=== PATIENT | female | born 1955 | race Caucasian/White ===

== ENCOUNTER 2019-10-17 12:14 | Outpatient (CLI) | payer BC, SELFPAY ==
--- NOTE | ~2019-10-17 | MM_ITS ---
EXAMINATION: MM screening [facility] BI w petar HISTORY: Screening mammogram TECHNIQUE: Craniocaudal and mediolateral oblique 3-D tomosynthesis images were obtained and synthetic 2-D images were generated. CAD analysis was submitted and interpreted. COMPARISON: Comparison to multiple prior studies sequentially, with oldest reviewed study dated 02/16. BREAST PARENCHYMAL COMPOSITION: There are scattered areas of fibroglandular density. FINDINGS: There is no evidence of suspicious mass, calcification, or architectural distortion to sugg est malignancy in either breast. There has been no suspicious interval change. IMPRESSION: 1. No mammographic evidence of malignancy. 2. Recommend routine screening mammography in one year. BI-RADS Category 1: Negative Reviewed, dictated and finalized at location D.
[2019-10-17 12:46] LABS: Add Urine Microscopic? NO; Appearance Urine Clear (Clear); Basophils Absolute Auto 0.02 K/mm3 (0.00-0.10); Basophils Percent Auto 0.4 % (0.0-1.0); Bilirubin Urine Negative (Negative); Blood Urine Negative (Negative); Color Urine Yellow (Yellow); Eosinophils Percent Auto 3.6 % (1.0-6.0); Glucose Urine UA Negative (Negative); Hematocrit 41.2 % (35.0-49.0); Hemoglobin 13.3 g/dL (12.0-15.0); Immature Granulocyte Absolute 0.02 K/mm3 (0.00-0.00); Immature Granulocyte Percent A 0.4 % (0.0-0.0); Ketones Urine Negative (Negative); Leukocyte Esterase Ur Negative LEU/UL (Negative); Lymphocytes Absolute Auto 2.25 K/mm3 (1.10-4.50); Lymphocytes Percent Auto 40.3 % (18.0-42.0); Mean Corpuscular HGB Conc 32.3 g/dL (32.0-36.0); Mean Corpuscular Hemoglobin 31.1 pg (27.0-31.0); Mean Corpuscular Volume 96.3 fL (78.0-102.0); Mean Platelet Volume 10.4 fl (9.2-11.8); Monocytes Absolute Auto 0.55 K/mm3 (0.10-0.90); Monocytes Percent Auto 9.8 % (2.0-11.0); Neutrophils Absolute Auto 2.6 K/mm3 (1.7-7.2); Neutrophils Percent Auto 45.5 % (50.0-70.0); Nitrate Urine Negative (Negative); Platelet Count Result 319 K/mm3 (150-420); Protein Urine Negative (Negative); Red Blood Count 4.28 M/mm3 (4.20-5.40); Red Cell Distribution Width 13.5 % (11.6-14.4); Urobilinogen Urine 0.2 mg/dL (0.2-1.0); White Blood Count 5.6 K/mm3 (4.8-10.8)
[2019-10-17 13:55] LABS: Alanine Aminotransferase 21 U/L (14-59); Albumin Level 3.9 g/dL (3.4-5.0); Alkaline Phosphatase 88 U/L (46-116); Anion Gap 13.1 mmol/L (7-16); Aspartate Amino Transferase 22 U/L (15-37); Bilirubin,Total 0.5 mg/dL (0.00-1.00); Blood Urea Nitrogen 18 mg/dL (7-18); Calcium 9.7 mg/dL (8.5-10.1); Carbon Dioxide 29 mmol/L (21-32); Chloride 103 mmol/L (98-108); Cholesterol 181 mg/dL (0-200); Estimated Glomerular Filt Rate > 60; Free T4 Free Thyroxine 1.39 ng/dL (0.76-1.46); Glucose 89 mg/dL (70-99); HDL Direct 59 mg/dL (40-60); LDL Cholesterol Calculated 105 mg/dL (<130); Osmolality Calculated 292 mOsm/kg (285-295); Potassium 4.1 mmol/L (3.5-5.1); Sodium 141 mmol/L (136-145); Thyroid Stimulating Hormone 0.39 uIU/mL (0.36-3.74); Total Protein 7.4 g/dL (6.4-8.2); Triglycerides 84 mg/dL (0-150)
[2019-10-20 11:15] LABS: Vitamin D 25 Hydroxy 56 ng/mL (30-100)
== END 2019-10-17 12:15 | disposition home or self-care (01) ==
LOC: CHSIMG 12:17
PROVIDERS: PCP Internal Medicine; Visit Provider Internal Medicine
DX: Z12.31 Encounter for screening mammogram for malignant neoplasm of breast (principal); Z00.00 Encounter for general adult medical examination without abnormal findings; M81.0 Age-related osteoporosis without current pathological fracture
CPT/HCPCS: 36415; 77063; 77067; 80053; 80061; 81003; 82306; 84439; 84443; 85025

== ENCOUNTER 2019-11-12 12:57 | Outpatient (CLI) | payer BC, SELFPAY ==
--- NOTE | ~2019-11-12 | DEXA_ITS ---
BMD(1) Young-Adult(2) Age-Matched(3) Region (g/cm2) T-score Z-score WHO Classification L1 0.963 -1.4 0.3 Osteopenia L2 1.011 -1.6 0.1 Osteopenia L3 1.085 -1.1 0.7 Osteopenia L4 1.392 1.4 3.1 Normal L2-L3 1.050 -1.3 0.4 Osteopenia Trend: L2-L3 Change vs Change vs Measured Age BMD(1) Baseline Previous Date (years) (g/cm2) (%) (%) 11/12/2019 64.7 1.050 -13.4* -4.5 06/24/2017 62.4 1.099 -9.3* -3.6 07[age]05/2014 59.4 1.140 -5.9* -5.9* 11/18/2006 51.8 1.212 baseline - * - Indicates significant change based on 95% confidence interval. 1 - Statistically 68% of repeat scans fall within 1SD (+- 0.020 g/cm2 for AP Spine L2-L3) 2 - [place] (Combined NHANES (ages 20-30) / Quividi (ages 20-40)) AP Spine Reference Population (v112) 3 - Matched for Age, Weight (females 25-100 kg), Ethnic 11 - World Health Organization - Definition of Osteoporosis and Osteopenia for Women: Norm al = T-score at or above -1.0 SD; Osteopenia = T-score between -1.0 and -2.5 SD; Osteoporosis = T-sco re at or below -2.5 SD; (WHO definitions only apply when a young healthy Women reference da tabase is used to determine T-scores.) Printed: 11/12/2019 1:25:27 PM (13.60)76:3.00:50.00:12.0 0.00:8.34 0.60x1.05 19.6:%Fat=25.6% 0.00:0.00 0.00:0.00 Filename: [id number] Scan Mode: Standard;OneScan 37.0 uGCare at Hand [id number] BMD(1) Young-Adult(2,7) Age-Matched(3) Region (g/cm2) T-score Z-score WHO Classification Neck Left 0.874 -1.2 0.4 Osteopenia Right 0.842 -1.4 0.1 Osteopenia Mean 0.858 -1.3 0.3 Osteopenia Difference 0.032 -0.2 -0.2 - Total Left 0.910 -0.8 0.5 Normal Right 0.910 -0.8 0.5 Normal Mean 0.910 -0.8 0.5 Normal Difference 0.000 0.0 0.0 - Hip [place] Length Comparison (mm) (Right = 116.4 mm) (Mean = 106.3 mm) Trend: Total Mean Change vs Change vs Measured Age BMD(1) Baseline Previous Date (years) (g/cm2) (%) (%) 11/12/2019 64.7 0.910 -10.1* -3.0* 07/05/2014 59.4 0.938 -7.3* -7.3* 11/18/2006 51.8 1.012 baseline - * - Indicates significant change based on 95% confidence interval. 1 - Statistically 68% of repeat scans fall within 1SD (+- 0.010 g/cm2 for DualFemur Total) 2 - [place] (Combined NHANES (ages 20-30) / [employer] (ages 20-40)) Femur Reference Population (v112) 3 - Matched for Age, Weight (females 25-100 kg), Ethnic 7 - DualFemur Total T-score difference is 0.0. Asymmetry is None. 11 - World Health Organization - Definition of Osteoporosis and Osteopenia for Women: Norm al = T-score at or above -1.0 SD; Osteopenia = T-score between -1.0 and -2.5 SD; Osteoporosis = T-sco re at or below -2.5 SD; (WHO definitions only apply when a young healthy Women reference da tabase is used to determine T-scores.) Printed: 11/12/2019 1:25:27 PM (13.60); Filename: [id number]; Right Femur; 17.4:%Fat=24.0%; Neck A ngle (deg)= 64; Verify there is sufficient pelvis-shaft separation.; Scan Mode: Standard 37.0 uGy; Left Femur; 15.9:%Fat=30.3%; Neck Angle (deg)= 65; Scan Mode: Standard 37.0 viblast [id number] Dear Wild Vargas, Your patient Griselda Barron completed a BMD test on 11/12/2019 using the [employer] DXA System (an alysis version: 13.60) manufactured by [employer]. The f
== END 2019-11-12 12:58 | disposition home or self-care (01) ==
LOC: CHSIMG 12:58
PROVIDERS: PCP Internal Medicine; Visit Provider Internal Medicine
DX: M81.0 Age-related osteoporosis without current pathological fracture (principal)
CPT/HCPCS: 77080

== ENCOUNTER 2020-03-31 11:44 | Outpatient (CLI) | payer MEDICARE, BC, SELFPAY | END 2020-03-31 11:45 | disposition home or self-care (01) | LOC: CHSLAB 11:48 | PROVIDERS: PCP Internal Medicine; Visit Provider Nurse Practitioner Family | DX: Z01.419 Encounter for gynecological examination (general) (routine) without abnormal findings (principal) | CPT/HCPCS: 36415; 87624; 88142 ==

== ENCOUNTER 2020-11-12 09:30 | Outpatient (CLI) | payer MEDICARE, BC, SELFPAY ==
--- NOTE | ~2020-11-12 | MM_ITS ---
EXAMINATION: MM screening trip BI w petar HISTORY: Screening mammogram TECHNIQUE: Craniocaudal and mediolateral oblique 3-D tomosynthesis images were obtained and synthetic 2-D images were generated. CAD analysis was submitted and interpreted. COMPARISON: 10/17/2019, 07/06/2018, 03/28/2017 bilateral digital screening mammogram examinations BREAST PARENCHYMAL COMPOSITION: There are scattered areas of fibroglandular density. FINDINGS: There is no evidence of suspicious mass, calcification, or architectural distortion to sugg est malignancy in either breast. There has been no suspicious interval change. IMPRESSION: 1. No mammographic evidence of malignancy. 2. Recommend routine screening mammography in one year. BI-RADS Category 1: Negative Reviewed, dictated and finalized at location A.
[2020-11-12 10:44] LABS: Basophils Absolute Auto 0.02 K/mm3 (0.00-0.10); Basophils Percent Auto 0.5 % (0.0-1.0); Eosinophils Absolute Auto 0.22 K/mm3 (0.02-0.50); Eosinophils Percent Auto 5.1 % (1.0-6.0); Hematocrit 44.4 % (35.0-42.0); Hemoglobin 14.2 g/dL (11.7-13.8); Immature Granulocyte Absolute 0.02 K/mm3 (0.00-0.00); Immature Granulocyte Percent A 0.5 % (0.0-0.0); Lymphocytes Absolute Auto 1.57 K/mm3 (1.10-4.50); Lymphocytes Percent Auto 36.6 % (18.0-42.0); Mean Corpuscular Hemoglobin 30.2 pg (27.0-31.0); Mean Corpuscular Volume 94.5 fL (78.0-102.0); Mean Platelet Volume 10.2 fl (9.2-11.8); Monocytes Absolute Auto 0.48 K/mm3 (0.10-0.90); Monocytes Percent Auto 11.2 % (2.0-11.0); Neutrophils Percent Auto 46.1 % (50.0-70.0); Platelet Count Result 304 K/mm3 (150-420); Red Cell Distribution Width 13.9 % (11.6-14.4); White Blood Count 4.3 K/mm3 (4.8-10.8)
[2020-11-12 10:47] LABS: Add Urine Microscopic? NO; Appearance Urine Clear (Clear); Bilirubin Urine Negative (Negative); Blood Urine Negative (Negative); Color Urine Light Yellow (Yellow); Glucose Urine UA Negative (Negative); Ketones Urine Negative (Negative); Leukocyte Esterase Ur Negative LEU/UL (Negative); Nitrate Urine Negative (Negative); Protein Urine Negative (Negative); Specific Grav Ur 1.025 (1.010-1.020); Urobilinogen Urine 0.2 mg/dL (0.2-1.0); pH Urine 5.5 (5.0-8.0)
[2020-11-12 11:28] LABS: Alanine Aminotransferase 28 U/L (14-59); Albumin Level 4.1 g/dL (3.4-5.0); Alkaline Phosphatase 94 U/L (46-116); Anion Gap 9 mmol/L (8-16); Aspartate Amino Transferase 22 U/L (15-37); Bilirubin,Total 0.4 mg/dL (0.00-1.00); Blood Urea Nitrogen 25 mg/dL (7-18); Calcium 9.6 mg/dL (8.5-10.1); Carbon Dioxide 29 mmol/L (21-32); Chloride 104 mmol/L (98-108); Cholesterol 191 mg/dL (0-200); Estimated Glomerular Filt Rate > 60; Free T3 2.01 pg/mL (2.18-3.98); Free T4 Free Thyroxine 0.97 ng/dL (0.76-1.46); Glucose 89 mg/dL (70-99); HDL Direct 53 mg/dL (40-60); LDL Cholesterol Calculated 125 mg/dL (<130); Osmolality Calculated 297 mOsm/kg (285-295); Potassium 4.8 mmol/L (3.5-5.1); Sodium 142 mmol/L (136-145); Thyroid Stimulating Hormone 0.22 uIU/mL (0.36-3.74); Total Protein 7.7 g/dL (6.4-8.2); Triglycerides 67 mg/dL (0-150)
[2020-11-14 13:32] LABS: Vitamin D 25 Hydroxy 57 ng/mL (30-100)
== END 2020-11-12 09:31 | disposition home or self-care (01) ==
PROVIDERS: PCP Internal Medicine; Visit Provider Internal Medicine
DX: E03.9 Hypothyroidism, unspecified (principal); M81.0 Age-related osteoporosis without current pathological fracture; Z12.31 Encounter for screening mammogram for malignant neoplasm of breast
CPT/HCPCS: 36415; 77063; 77067; 80053; 80061; 81003; 82306; 84439; 84443; 84481; 85025

== ENCOUNTER 2020-12-03 11:19 | Outpatient (CLI) | payer MEDICARE, BC, SELFPAY ==
--- NOTE | ~2020-12-03 | CT_ITS ---
EXAMINATION: CT soft tissue neck w con DATE: 12/03/2020 12:49 INDICATION: Posterior neck mass. TECHNIQUE: Computed tomography (CT) of the neck was performed with 75 mL Omnipaque-350 intravenous co ntrast. Automated exposure control and iterative reconstruction technique were employed. The dose-nicola gth product was 314.65 mGy-cm. COMPARISON: None FINDINGS: There is mild scarring at the lung apices. There is a subcutaneous lipoma in left posterior neck measuring 3.6 x 1.2 x 3.4 cm. A skin marker overlies this area. There are no pathologically enl arged lymph nodes. There is mild plaque in proximal left internal carotid artery with 0% stenosis rel ative to normal distal artery lumen diameter. There is mild cervical spondylosis. IMPRESSION: 1. 3.6 cm subcutaneous lipoma in left posterior neck. Reviewed, dictated and finalized at location B.
[2020-12-03 11:58] LABS: Estimated Glomerular Filt Rate > 60
== END 2020-12-03 11:20 | disposition home or self-care (01) ==
LOC: CHSIMG 11:25
PROVIDERS: PCP Internal Medicine; Visit Provider Internal Medicine
DX: R22.1 Localized swelling, mass and lump, neck (principal)
CPT/HCPCS: 70491; Q9967

== ENCOUNTER 2021-11-19 12:19 | Outpatient (CLI) | payer MEDICARE, BC, SELFPAY ==
--- NOTE | ~2021-11-19 | MM_ITS ---
EXAMINATION: MM screening [facility] BI w petar HISTORY: Screening TECHNIQUE: Craniocaudal and mediolateral oblique 3-D tomosynthesis images were obtained and synthetic 2-D images were generated. CAD analysis was submitted and interpreted. COMPARISON: Comparison to multiple prior studies sequentially, with oldest reviewed study dated 02/17. BREAST PARENCHYMAL COMPOSITION: There are scattered areas of fibroglandular density. FINDINGS: There is no evidence of suspicious mass, calcification, or architectural distortion to sugg est malignancy in either breast. There has been no suspicious interval change. IMPRESSION: 1. No mammographic evidence of malignancy. 2. Recommend routine screening mammography in one year. BI-RADS Category 1: Negative Reviewed, dictated and finalized at location A.
== END 2021-11-19 12:20 | disposition home or self-care (01) ==
LOC: CHSIMG 12:23
PROVIDERS: PCP Internal Medicine; Visit Provider Internal Medicine
DX: Z12.31 Encounter for screening mammogram for malignant neoplasm of breast (principal)
CPT/HCPCS: 77063; 77067

== ENCOUNTER 2022-01-29 09:48 | Outpatient (CLI) | payer MEDICARE, BC, SELFPAY ==
[2022-01-29 10:15] LABS: Basophils Absolute Auto 0.03 K/mm3 (0.00-0.10); Basophils Percent Auto 0.7 % (0.0-1.0); Eosinophils Absolute Auto 0.25 K/mm3 (0.02-0.50); Eosinophils Percent Auto 5.9 % (1.0-6.0); Hematocrit 41.7 % (35.0-42.0); Hemoglobin 13.4 g/dL (11.7-13.8); Immature Granulocyte Absolute 0.02 K/mm3 (0.00-0.00); Immature Granulocyte Percent A 0.5 % (0.0-0.0); Lymphocytes Absolute Auto 1.72 K/mm3 (1.10-4.50); Lymphocytes Percent Auto 40.8 % (18.0-42.0); Mean Corpuscular HGB Conc 32.1 g/dL (32.0-36.0); Mean Corpuscular Hemoglobin 31.5 pg (27.0-31.0); Mean Corpuscular Volume 98.1 fL (78.0-102.0); Monocytes Absolute Auto 0.47 K/mm3 (0.10-0.90); Monocytes Percent Auto 11.1 % (2.0-11.0); Neutrophils Absolute Auto 1.7 K/mm3 (1.7-7.2); Platelet Count Result 291 K/mm3 (150-420); Red Blood Count 4.25 M/mm3 (4.20-5.40); Red Cell Distribution Width 13.6 % (11.6-14.4); White Blood Count 4.2 K/mm3 (4.8-10.8)
[2022-01-29 10:17] LABS: Appearance Urine Clear (Clear); Bilirubin Urine Negative (Negative); Blood Urine Negative (Negative); Glucose Urine UA Negative (Negative); Ketones Urine Negative (Negative); Leukocyte Esterase Ur Negative LEU/UL (Negative); Nitrate Urine Negative (Negative); Protein Urine Negative (Negative); Specific Grav Ur 1.025 (1.010-1.020); Urobilinogen Urine 0.2 mg/dL (0.2-1.0)
[2022-01-29 10:18] LABS: Add Urine Microscopic? NO; Color Urine Light Yellow (Yellow)
[2022-01-29 11:08] LABS: Alanine Aminotransferase 17 U/L (14-59); Albumin Level 3.9 g/dL (3.4-5.0); Alkaline Phosphatase 77 U/L (46-116); Anion Gap 5 mmol/L (8-16); Aspartate Amino Transferase 16 U/L (15-37); Bilirubin,Total 0.4 mg/dL (0.00-1.00); Blood Urea Nitrogen 21 mg/dL (7-18); Calcium 9.4 mg/dL (8.5-10.1); Carbon Dioxide 32 mmol/L (21-32); Chloride 107 mmol/L (98-108); Cholesterol 184 mg/dL (0-200); Estimated Glomerular Filt Rate > 60; Free T3 2.26 pg/mL (2.18-3.98); Free T4 Free Thyroxine 0.97 ng/dL (0.76-1.46); Glucose 92 mg/dL (70-99); HDL Direct 62 mg/dL (40-60); LDL Cholesterol Calculated 109 mg/dL (<130); Osmolality Calculated 301 mOsm/kg (285-295); Potassium 4.5 mmol/L (3.5-5.1); Sodium 144 mmol/L (136-145); Thyroid Stimulating Hormone 1.05 uIU/mL (0.36-3.74); Total Protein 7.4 g/dL (6.4-8.2); Triglycerides 65 mg/dL (0-150)
[2022-02-01 12:33] LABS: Vitamin D 25 Hydroxy 62 ng/mL (30-100)
== END 2022-01-29 09:49 | disposition home or self-care (01) ==
LOC: CHSLAB 09:57
PROVIDERS: PCP Internal Medicine; Visit Provider Internal Medicine
DX: E78.2 Mixed hyperlipidemia (principal); I10 Essential (primary) hypertension; N39.0 Urinary tract infection, site not specified; R53.83 Other fatigue; M81.0 Age-related osteoporosis without current pathological fracture
CPT/HCPCS: 36415; 80053; 80061; 81003; 82306; 84439; 84443; 84481; 85025

== ENCOUNTER 2022-02-19 12:47 | Outpatient (CLI) | payer MEDICARE, BC, SELFPAY ==
--- NOTE | ~2022-02-19 | DEXA_ITS ---
Bone Density Report Name: SHAHID FELIZ Age: 67 Sex: Female Ethnicity: White Date of : 1955 Indication: postmenopausal; screening for osteoporosis; height loss; asthma or emphysema; Referring Provider: Wild Vargas Study: Bone densitometry was performed. Exam Date: February 19, 2022 Accession number: [id number] Bone Density: Region BMD T-score Z-score Classification AP Spine(L1, L2, L3) 0.830 -1.7 0.2 Osteopenia Femoral Neck (Left) 0.633 -1.9 -0.3 Osteopenia Total Hip (Left) 0.806 -1.1 0.2 Osteopenia Femoral Neck (Right) 0.666 -1.6 0.0 Osteopenia Total Hip (Right) 0.822 -1.0 0.4 Normal Femoral Neck Mean 0.650 -1.8 -0.2 Osteopenia Total Hip Mean 0.814 -1.0 0.3 Normal World Health Organization criteria for BMD impression classify patients as: Normal (T-score at or above -1.0), Osteopenia (T-score between -1.0 and -2.5), or Osteoporosis (T-score at or below -2.5). 10-year Fracture Risk(1): Major Osteoporotic Fracture 10% Hip Fracture 1.7% Reported Risk Factors: [place] (), Neck BMD=0.633, BMI=22.7 (1) FRAX(R) Version 3.08. Fracture probability calculated for an untreated patient. Fracture probability may be lower if the patient has received treatment. Clinical Information Provided by Patient: Has used the following medications: Vitamin D, Calcium Has the following medical conditions: Asthma or Emphysema Patient maximum height was 66 Menopause Age: 50 Drinks caffeinated beverages Onset of menses at age 13 Number of children 2 Impression: The patient has low bone mass, based on the Left Femoral Neck T-score. Discussion: BONE DENSITY IS LOW AT ONE OR MORE SKELETAL SITES. This patient's lowest T-score is low at one or more skeletal sites. It meets the World Health Organization's (WHO) criteria for ?low bone mass? (T-score between -1.0 and -2.5). The patient's 10-year risk of fracture as calculated by FRAX is less than the threshold where pharmacological therapy is recommended by the National Osteoporosis Foundation (NOF). However, all treatment decisions require clinical judgment and consideration of individual patient factors, including patient preferences, comorbidities, previous drug use, risk factors not captured in the FRAX model (e.g., frailty, falls, vitamin D deficiency, increased bone turnover, interval significant decline in bone density) and possible under or overestimation of fracture risk by FRAX. The patient should follow a healthful lifestyle (good nutrition with adequate calcium and vitamin D, and appropriate weight-bearing exercise). Follow-Up: Consider repeating this study in 2 to 3 years to reassess this patient's status, or sooner if there is some new clinical indication. Reported by: Dr. Jeff Arellano on 02/22/2022 11:09:
== END 2022-02-19 12:48 | disposition home or self-care (01) ==
LOC: CHSIMG 12:49
PROVIDERS: PCP Internal Medicine; Visit Provider Internal Medicine
DX: M81.0 Age-related osteoporosis without current pathological fracture (principal)
CPT/HCPCS: 77080

== ENCOUNTER 2022-11-24 09:18 | Outpatient (CLI) | payer MEDICARE, BC, SELFPAY ==
--- NOTE | ~2022-11-24 | MM_ITS ---
EXAMINATION: MM screening [facility] BI w petar HISTORY: Screening mammogram TECHNIQUE: Craniocaudal and mediolateral oblique 3-D tomosynthesis images were obtained and synthetic 2-D images were generated. CAD analysis was submitted and interpreted. COMPARISON: 11/19/2021, 11/12/2020, 10/17/2019 BREAST PARENCHYMAL COMPOSITION: There are scattered areas of fibroglandular density. FINDINGS: No suspicious mass, calcification, or architectural distortion are identified in either malik ast to suggest malignancy. There has been no suspicious interval change. IMPRESSION: 1. No mammographic evidence of malignancy. 2. Recommend routine screening mammography in one year. BI-RADS Category 1: Negative Reviewed, dictated and finalized at location A.
== END 2022-11-24 09:19 | disposition home or self-care (01) ==
LOC: CHSIMG 09:20
PROVIDERS: PCP Internal Medicine; Visit Provider Internal Medicine
DX: Z12.31 Encounter for screening mammogram for malignant neoplasm of breast (principal)
CPT/HCPCS: 77063; 77067

== ENCOUNTER 2023-01-27 11:10 | Outpatient (CLI) | payer MEDICARE, SELFPAY ==
[2023-01-27 12:01] LABS: Basophils Absolute Auto 0.04 K/mm3 (0.00-0.10); Basophils Percent Auto 0.7 % (0.0-1.0); Eosinophils Absolute Auto 0.23 K/mm3 (0.02-0.50); Eosinophils Percent Auto 4.1 % (1.0-6.0); Hematocrit 42.9 % (35.0-42.0); Hemoglobin 13.3 g/dL (11.7-13.8); Immature Granulocyte Absolute 0.02 K/mm3 (0.00-0.00); Immature Granulocyte Percent A 0.4 % (0.0-0.0); Lymphocytes Absolute Auto 2.28 K/mm3 (1.10-4.50); Lymphocytes Percent Auto 40.6 % (18.0-42.0); Mean Corpuscular Hemoglobin 30.2 pg (27.0-31.0); Mean Corpuscular Volume 97.3 fL (78.0-102.0); Mean Platelet Volume 10.1 fl (9.2-11.8); Monocytes Absolute Auto 0.58 K/mm3 (0.10-0.90); Monocytes Percent Auto 10.3 % (2.0-11.0); Neutrophils Absolute Auto 2.5 K/mm3 (1.7-7.2); Neutrophils Percent Auto 43.9 % (50.0-70.0); Platelet Count Result 368 K/mm3 (150-420); Red Blood Count 4.41 M/mm3 (4.20-5.40); Red Cell Distribution Width 13.6 % (11.6-14.4); White Blood Count 5.6 K/mm3 (4.8-10.8)
[2023-01-27 12:20] LABS: Appearance Urine Clear (Clear); Bilirubin Urine Negative (Negative); Blood Urine Negative (Negative); Color Urine Light Yellow (Yellow); Glucose Urine UA Negative (Negative); Ketones Urine Negative (Negative); Leukocyte Esterase Ur 1+ LEU/UL (Negative); Nitrate Urine Negative (Negative); Protein Urine Negative (Negative); Specific Grav Ur 1.025 (1.010-1.020); Urobilinogen Urine 0.2 mg/dL (0.2-1.0)
[2023-01-27 12:26] LABS: Add Urine Microscopic? NO; Bacteria Urine Trace /hpf; RBC Urine None seen /hpf (0-2); Squamous Epithelial Cell Urine Few /hpf (Few); WBC Urine 0-3 /hpf (0-3)
[2023-01-27 12:27] LABS: Mucus Urine Moderate /lpf
[2023-01-27 12:58] LABS: Alanine Aminotransferase 16 U/L (14-59); Albumin Level 3.8 g/dL (3.4-5.0); Alkaline Phosphatase 80 U/L (46-116); Anion Gap 7 mmol/L (8-16); Aspartate Amino Transferase 11 U/L (15-37); Bilirubin,Total 0.5 mg/dL (0.00-1.00); Blood Urea Nitrogen 14 mg/dL (7-18); Carbon Dioxide 29 mmol/L (21-32); Chloride 104 mmol/L (98-108); Cholesterol 173 mg/dL (0-200); Estimated Glomerular Filt Rate > 60; Free T3 2.51 pg/mL (2.18-3.98); Free T4 Free Thyroxine 0.99 ng/dL (0.76-1.46); Glucose 86 mg/dL (70-99); HDL Direct 53 mg/dL (40-60); LDL Cholesterol Calculated 103 mg/dL (<130); Osmolality Calculated 289 mOsm/kg (285-295); Potassium 4.2 mmol/L (3.5-5.1); Sodium 140 mmol/L (136-145); Thyroid Stimulating Hormone 1.55 uIU/mL (0.36-3.74); Total Protein 7.6 g/dL (6.4-8.2); Triglycerides 83 mg/dL (0-150)
[2023-02-03 12:35] LABS: Vitamin D 25 Hydroxy 58 ng/mL (30-100)
== END 2023-01-27 11:11 | disposition home or self-care (01) ==
LOC: CHSLAB 11:43
PROVIDERS: PCP Internal Medicine; Visit Provider Internal Medicine
DX: N39.0 Urinary tract infection, site not specified (principal); E03.9 Hypothyroidism, unspecified; E78.5 Hyperlipidemia, unspecified; E55.9 Vitamin D deficiency, unspecified
CPT/HCPCS: 36415; 80053; 80061; 81003; 82306; 84439; 84443; 84481; 85025; 87077; 87086; 87088

== ENCOUNTER 2023-07-20 09:49 | Outpatient (RCR) | payer MEDICARE, BC, SELFPAY ==
--- NOTE | 2023-07-20 10:57 | OPREHPOC ---
Outpatient Therapy Plan of Care This is a Multidisciplinary Plan of Care that may contain components documented by all disciplines (PT, OT, and ST.) PT Problem 1 PT Problem #1 Knowledge Deficit PT Goal 1 Goal The patient will be independent in a home exercise program. Target Visit 12 PT Problem 2 PT Problem #2 Pain PT Goal 1 Goal The patient will report no greater than 2/10 right shoulder pain with all daily activities. Target Visit 12 PT Problem 3 PT Problem #3 Impaired Range of Motion PT Goal 1 Goal The patient will demonstrate 150 degrees of right shoulder flexion AROM to improve overhead reaching ability. The patient will demonstrate functional IR of the right shoulder to T8 to improve dressing ability. The patient will demonstrate 80 degrees of right shoulder ER AROM to improve ability to don a seat belt. Target Visit 12 PT Problem 4 PT Problem #4 Impaired Strength PT Goal 1 Goal The patient will demonstrate at least 4/5 right shoulder strength throughout in order to improve lifting and carrying ability. PT Problem 5 PT Problem #5 Impaired Functional Mobil PT Goal 1 Goal The patient will demonstrate less than 10% self perceived disability per the Quick DASH. The patient will be able to lift 15# from shoulder to overhead. Target Visit 12
--- NOTE | 2023-07-20 10:57 | PTOPEVAL1 ---
Assessment and note entered by Rhoda Rodriges, PT Evaluation Information Assessment Status Evaluation Diagnosis R frozen shoulder Onset 07/18/23 Subjective Information Griselda reports she jammed her right arm She has difficulty and pain reaching behind her back, to the side, and overhead. She also has difficulty laying on the right side. She was diagnosed with a frozen shoulder when she went to the doctor. Reported Pain Level Pain Score 0: Self Report Assessment PT Clinical Summary Griselda Barorn presents with right shoulder pain and decreased mobility since falling and catching herself on a tree in January 2023. She recently went to the doctor and was diagnosed with a frozen shoulder. She has difficulty reaching behind her back, to the side, overhead, and sleeping. She demonstrates decreased and painful right shoulder AROM, decreased right shoulder strength, and decreased functional abilities. She will benefit from skilled PT to address these limitations. Plan of Care Interventions Electrical Stimulation,Hot Pack/Cold Pack,Manual Therapy,Neuro Re-education,Patient/Caregiver Educati,Therapeutic Activities,Therapeutic Exercise PT Services Indicated Yes Treatment Frequency and 3 times a week for 12 visits Duration These treatments will address the objective and functional deficits as defined above. The patient will be advanced safely and appropriately in order for the patient to progress towards his/her prior level of function. Additional exercises will be introduced and as well as a comprehensive home exercise program upon discharge, if needed, ?to ensure carryover of functional gains achieved in the clinic. This treatment plan has been reviewed and agreement upon by the patient.
--- NOTE | 2023-07-20 12:17 | PTOPEVAL1 ---
Assessment and note entered by Rhoda Rodriges, PT Evaluation Information Assessment Status Evaluation Diagnosis R frozen shoulder Onset 07/18/23 Subjective Information Griselda reports she jammed her right arm when she tried to stop herself from falling by grabbing a tree in January 2023. She thought the right shoulder pain would improve but it hasn't so she went to the doctor and was diagnosed with a frozen shoulder. She has difficulty and pain reaching behind her back, to the side, and overhead. She also has difficulty laying on the right side. Reported Pain Level Pain Score 0: Self Report Assessment PT Clinical Summary Griselda Barron presents with right shoulder pain and decreased mobility since falling and catching herself on a tree in January 2023. She recently went to the doctor and was diagnosed with a frozen shoulder. She has difficulty reaching behind her back, to the side, overhead, and sleeping. She demonstrates decreased and painful right shoulder AROM, decreased right shoulder strength, and decreased functional abilities. She will benefit from skilled PT to address these limitations. Plan of Care Interventions Electrical Stimulation,Hot Pack/Cold Pack,Manual Therapy,Neuro Re-education,Patient/Caregiver Educati,Therapeutic Activities,Therapeutic Exercise PT Services Indicated Yes Treatment Frequency and 3 times a week for 12 visits Duration These treatments will address the objective and functional deficits as defined above. The patient will be advanced safely and appropriately in order for the patient to progress towards his/her prior level of function. Additional exercises will be introduced and as well as a comprehensive home exercise program upon discharge, if needed, ?to ensure carryover of functional gains achieved in the clinic. This treatment plan has been reviewed and agreement upon by the patient.
--- NOTE | 2023-08-22 14:49 | PTOPPROG ---
Assessment and note entered by Chico Schuster Evaluation Information Assessment Status Progress Diagnosis R frozen shoulder Onset 07/18/23 Subjective Information Pt. reports she is doing much better. She notes less intense pain. Assessment PT Clinical Summary Pt. has attended a total of 10 treatment sessions. She has demonstrated significant progress in regards to strength and mobility. Despite her progress deficits still remain. At this time recommend pt. continue with 2 additional treatment sessions focusing on remaining strength and mobility deficits Plan of Care Interventions Electrical Stimulation,Hot Pack/Cold Pack,Manual Therapy,Neuro Re-education,Therapeutic Activities, Therapeutic Exercise PT Services Indicated Yes Treatment Frequency and 2x/week x 2 visits Duration These treatments will address the objective and functional deficits as defined above. The patient will be advanced safely and appropriately in order for the patient to progress towards his/her prior level of function. Additional exercises will be introduced and as well as a comprehensive home exercise program upon discharge, if needed, ?to ensure carryover of functional gains achieved in the clinic. This treatment plan has been reviewed and agreement upon by the patient.
--- NOTE | 2023-08-26 11:40 | OPREHPOC ---
Outpatient Therapy Plan of Care This is a Multidisciplinary Plan of Care that may contain components documented by all disciplines (PT, OT, and ST.) PT Problem 1 PT Problem #1 Knowledge Deficit PT Goal 1 Goal The patient will be independent in a home exercise program. Target Visit 12 Progress Met PT Problem 2 PT Problem #2 Pain PT Goal 1 Goal The patient will report no greater than 2/10 right shoulder pain with all daily activities. Target Visit 12 Progress Met PT Problem 3 PT Problem #3 Impaired Range of Motion PT Goal 1 Goal The patient will demonstrate 150 degrees of right shoulder flexion AROM to improve overhead reaching ability. The patient will demonstrate functional IR of the right shoulder to T8 to improve dressing ability. The patient will demonstrate 80 degrees of right shoulder ER AROM to improve ability to don a seat belt. Target Visit 12 Progress Partially Met PT Problem 4 PT Problem #4 Impaired Strength PT Goal 1 Goal The patient will demonstrate at least 4/5 right shoulder strength throughout in order to improve lifting and carrying ability. Progress Met PT Problem 5 PT Problem #5 Impaired Functional Mobil PT Goal 1 Goal The patient will demonstrate less than 10% self perceived disability per the Quick DASH. The patient will be able to lift 15# from shoulder to overhead. Target Visit 12 Progress Met
--- NOTE | 2023-08-26 11:41 | PTOPDC ---
Assessment and note entered by Ashely Bruno DPT Evaluation Information Assessment Status Re-evaluation Diagnosis R frozen shoulder Onset 07/18/23 Subjective Information patient reports her shoulder is much better since start of PT. she reports she does have a 1/10 pain but states she has also been doing a lot of yard work. she has been able to lift and don her seat belt with decreased pain and difficulty. she reports independence with HEP. Reported Pain Level Pain Score 1: Self Report Assessment PT Clinical Summary Mrs. Barron was seen for 12 visits of skilled PT with great progress towards goals. She met goals for HEP, pain, strength and partially met goal for ROM. She has returned to all daily activities at [facility] as well as yard work at this time. She is independent with HEP and appropriate for DC at this time. Plan of Care PT Services Indicated No
== END 2023-08-26 13:27 | disposition home or self-care (01) ==
LOC: CHSPT 09:49
PROVIDERS: Visit Provider Internal Medicine
DX: M25.511 Pain in right shoulder (principal); M25.611 Stiffness of right shoulder, not elsewhere classified
CPT/HCPCS: 97014; 97110; 97140; 97161; G0283

== ENCOUNTER 2024-01-18 13:47 | Outpatient (CLI) | payer MEDICARE, BC, SELFPAY ==
--- NOTE | ~2024-01-18 | MM_ITS ---
EXAMINATION: MM screening trip BI w petar HISTORY: Screening TECHNIQUE: Craniocaudal and mediolateral oblique 3-D tomosynthesis images were obtained and synthetic 2-D images were generated. CAD analysis was submitted and interpreted. COMPARISON: Comparison to multiple prior studies sequentially, with oldest reviewed study dated 03/18. BREAST PARENCHYMAL COMPOSITION: Not dense: There are scattered areas of fibroglandular density. FINDINGS: There is no evidence of suspicious mass, calcification, or architectural distortion to sugg est malignancy in either breast. There has been no suspicious interval change. IMPRESSION: 1. No mammographic evidence of malignancy. 2. Recommend routine screening mammography in one year. BI-RADS Category 1: Negative Reviewed, dictated and finalized at location B.
== END 2024-01-18 13:48 | disposition home or self-care (01) ==
PROVIDERS: PCP Internal Medicine; Visit Provider Internal Medicine
DX: Z12.31 Encounter for screening mammogram for malignant neoplasm of breast (principal)
CPT/HCPCS: 77063; 77067

== ENCOUNTER 2024-01-20 09:33 | Outpatient (CLI) | payer MEDICARE, SELFPAY ==
[2024-01-20 09:52] LABS: Hemoglobin 13.2 g/dL (11.7-13.8); Mean Corpuscular HGB Conc 32.2 g/dL (32-36); Mean Corpuscular Hemoglobin 30.6 pg (27.0-31.0); Mean Corpuscular Volume 94.9 fL (78.0-102.0); Mean Platelet Volume 10.2 fl (9.2-11.8); Platelet Count Result 164 K/mm3 (150-420); Red Blood Count 4.32 M/mm3 (4.20-5.40); White Blood Count 3.8 K/mm3 (4.8-10.8)
[2024-01-20 09:55] LABS: Add Urine Microscopic? NO; Appearance Urine Clear (Clear); Bilirubin Urine Negative (Negative); Blood Urine Negative (Negative); Color Urine Yellow (Yellow); Glucose Urine UA Negative (Negative); Ketones Urine Negative (Negative); Leukocyte Esterase Ur Negative LEU/UL (Negative); Nitrate Urine Negative (Negative); Protein Urine Negative (Negative); Specific Grav Ur >= 1.030 (1.010-1.020); Urobilinogen Urine 0.2 mg/dL (0.2-1.0); pH Urine 5.5 (5.0-8.0)
[2024-01-20 10:11] LABS: Band Neutrophils Percent 0 % (0-6); Eosinophils Percent Manual 8 % (1-6); Lymphocytes Absolute Manual 1.21 K/mm3 (1.1-4.5); Lymphocytes Percent Manual 32 % (18-44); Monocytes Absolute Manual 0.41 K/mm3 (0.1-0.90); Monocytes Percent Manual 11 % (3-9); Neutrophils Absolute Manual 1.86 K/mm3 (1.7-7.2); Neutrophils Percent Manual 49 % (46-73); Platelet Estimate Adequate (Adequate); Schistocytes None Seen; Total Cells Counted 100
[2024-01-20 10:43] LABS: Alanine Aminotransferase 19 U/L (14-59); Albumin Level 3.8 g/dL (3.4-5.0); Alkaline Phosphatase 79 U/L (46-116); Anion Gap 4 mmol/L (4-12); Aspartate Amino Transferase 19 U/L (15-37); Bilirubin,Total 0.5 mg/dL (0.00-1.00); Blood Urea Nitrogen 21 mg/dL (7-18); Calcium 9.2 mg/dL (8.5-10.1); Carbon Dioxide 32 mmol/L (21-32); Chloride 104 mmol/L (98-108); Cholesterol 174 mg/dL (0-200); Estimated Glomerular Filt Rate > 60; Free T3 2.11 pg/mL (2.18-3.98); Free T4 Free Thyroxine 0.81 ng/dL (0.76-1.46); Glucose 94 mg/dL (70-99); HDL Direct 55 mg/dL (40-60); LDL Cholesterol Calculated 108 mg/dL (<130); Osmolality Calculated 293 mOsm/kg (285-295); Sodium 140 mmol/L (136-145); Thyroid Stimulating Hormone 5.21 uIU/mL (0.36-3.74); Total Protein 7.2 g/dL (6.4-8.2); Triglycerides 57 mg/dL (0-150)
[2024-01-21 08:39] LABS: Vitamin D 25 Hydroxy 48 ng/mL (30-100)
== END 2024-01-20 09:34 | disposition home or self-care (01) ==
LOC: CHSLAB 09:36
PROVIDERS: PCP Internal Medicine; Visit Provider Internal Medicine
DX: M81.0 Age-related osteoporosis without current pathological fracture (principal); N39.0 Urinary tract infection, site not specified; E55.9 Vitamin D deficiency, unspecified; E78.5 Hyperlipidemia, unspecified; E03.9 Hypothyroidism, unspecified
CPT/HCPCS: 36415; 80053; 80061; 81003; 82306; 84439; 84443; 84481; 85025

== ENCOUNTER 2024-03-01 14:53 | Outpatient (CLI) | payer MEDICARE, BC, SELFPAY ==
--- NOTE | ~2024-03-01 | DEXA_ITS ---
Bone Density Report Name: SHAHID FELIZ Age: 69 Sex: Female Ethnicity: White Date of : 1955 Indication: osteopenia; height loss; asthma or emphysema; Referring Provider: Wild Vargas Study: Bone densitometry was performed. Exam Date: March 01, 2024 Accession number: [id number] Bone Density: Region BMD T-score Z-score Classification AP Spine(L1, L2, L3) 0.803 -2.0 0.0 Osteopenia Femoral Neck (Left) 0.621 -2.1 -0.3 Osteopenia Total Hip (Left) 0.767 -1.4 0.0 Osteopenia Femoral Neck (Right) 0.634 -1.9 -0.2 Osteopenia Total Hip (Right) 0.757 -1.5 -0.1 Osteopenia Femoral Neck Mean 0.628 -2.0 -0.3 Osteopenia Total Hip Mean 0.762 -1.5 0.0 Osteopenia World Health Organization criteria for BMD impression classify patients as: Normal (T-score at or above -1.0), Osteopenia (T-score between -1.0 and -2.5), or Osteoporosis (T-score at or below -2.5). 10-year Fracture Risk(1): Major Osteoporotic Fracture 11% Hip Fracture 2.1% Reported Risk Factors: [place] (), Neck BMD=0.621, BMI=22.1 (1) FRAX(R) Version 3.08. Fracture probability calculated for an untreated patient. Fracture probability may be lower if the patient has received treatment. Previous Exams: Region Exam Age BMD T-score BMD Change BMD Change Date g/cm2 vs Baseline vs Previous AP Spine (L1-L3) 03/01/2024 69 0.803 -2.0 -0.027 (-3.3%) -0.027 (-3.3%) 02/19/2022 67 0.830 -1.7 Total Hip(Left) 03/01/2024 69 0.767 -1.4 -0.040 (-4.9%) -0.040 (-4.9%) 02/19/2022 67 0.806 -1.1 Total Hip(Right) 03/01/2024 69 0.757 -1.5 -0.065 (-7.9%) -0.065 (-7.9%) 02/19/2022 67 0.822 -1.0 *Denotes significance at 95% confidence level, LSC for AP Spine = 0.022 g/cm2, LSC for Total Hip = 0.027 g/cm2 Clinical Information Provided by Patient: Has used the following medications: Vitamin D, Calcium Has the following medical conditions: Asthma or Emphysema Patient maximum height was 66 Menopause Age: 50 Drinks caffeinated beverages Onset of menses at age 13 Number of children 2 Impression: The patient has low bone mass, based on the Left Femoral Neck T-score. The BMD for the AP Spine (L1-L3) decreased, changing by -3.3% since the last DXA exam. The BMD for the Total Hip(Left) decreased, changing by -4.9% since the last DXA exam. The BMD for the Total Hip(Right) decreased, changing by -7.9% since the last DXA exam. Discussion: BONE DENSITY IS LOW AT ONE OR MORE SKELETAL SITES. This patient's lowest T-score is low at one or more skeletal sites. It meets the World Health Organization's (WHO) criteria for ?low bone mass? (T-score between -1.0 and -2.5). The patient's 10-year risk of fracture as calculated by FRAX is less than the threshold where pharmacological therapy is recommended by the National Osteoporosis Foundation (NOF). However, all treatment decisions require clinical judgment and consideration of individual patient factors, including patient preferences, comorbidities, previous drug use, risk factors not captured in the FRAX model (e.g., frailty, falls, vitamin D deficiency, increased bone turnover, interval significant decline in bone density) and possible under or overestimation of fracture risk by FRAX. The patient should follow a healthful lifestyle (good nutrition with adequate calcium and vitamin D, and appropriate weight-bearing exercise). Follow-Up: Consider repeating this study in 2 years to reassess this patient's status, or sooner if there is some new clinical indication. Reported by: MEGHANA on 03/01/2024 3:17:00 PM. Reviewed, dictated and finalized at location A.
== END 2024-03-01 14:54 | disposition home or self-care (01) ==
LOC: CHSIMG 14:54
PROVIDERS: PCP Internal Medicine; Visit Provider Internal Medicine
DX: Z78.0 Asymptomatic menopausal state (principal); M85.89 Other specified disorders of bone density and structure, multiple sites
CPT/HCPCS: 77080

== ENCOUNTER 2024-04-04 11:34 | Outpatient (CLI) | payer MEDICARE, BC, SELFPAY ==
[2024-04-04 11:45] LABS: Basophils Absolute Auto 0.03 K/mm3 (0.00-0.10); Basophils Percent Auto 0.7 % (0.0-1.0); Eosinophils Absolute Auto 0.19 K/mm3 (0.02-0.50); Eosinophils Percent Auto 4.2 % (1.0-6.0); Hemoglobin 13.3 g/dL (11.7-13.8); Immature Granulocyte Absolute 0.01 K/mm3 (0.00-0.00); Immature Granulocyte Percent A 0.2 % (0.0-0.0); Lymphocytes Absolute Auto 1.73 K/mm3 (1.10-4.50); Mean Corpuscular HGB Conc 32.4 g/dL (32-36); Mean Corpuscular Hemoglobin 30.3 pg (27.0-31.0); Mean Corpuscular Volume 93.4 fL (78.0-102.0); Monocytes Absolute Auto 0.54 K/mm3 (0.10-0.90); Monocytes Percent Auto 11.9 % (2.0-11.0); Neutrophils Absolute Auto 2.05 K/mm3 (1.70-7.20); Platelet Count Result 239 K/mm3 (150-420); Red Blood Count 4.39 M/mm3 (4.20-5.40); Red Cell Distribution Width 13.4 % (11.6-14.4); White Blood Count 4.6 K/mm3 (4.8-10.8)
[2024-04-04 17:07] LABS: Free T3 2.22 pg/mL (2.18-3.98); Free T4 Free Thyroxine 0.98 ng/dL (0.76-1.46); Thyroid Stimulating Hormone 2.99 uIU/mL (0.36-3.74)
== END 2024-04-04 11:35 | disposition home or self-care (01) ==
PROVIDERS: PCP Internal Medicine; Visit Provider Internal Medicine
DX: D70.9 Neutropenia, unspecified (principal); E03.4 Atrophy of thyroid (acquired)
CPT/HCPCS: 36415; 84439; 84443; 84481; 85025

== ENCOUNTER 2025-01-21 12:53 | Outpatient (CLI) | payer MEDICARE, BC, SELFPAY ==
--- NOTE | ~2025-01-21 | MM_ITS ---
EXAMINATION: MM screening trip BI w petar HISTORY: Screening TECHNIQUE: Craniocaudal and mediolateral oblique 3-D tomosynthesis images were obtained and synthetic 2-D images were generated. CAD analysis was submitted and interpreted. COMPARISON: Comparison to multiple prior studies sequentially, with oldest reviewed study dated , 11/12/2020 BREAST PARENCHYMAL COMPOSITION: There are scattered areas of fibroglandular density. FINDINGS: There is no evidence of suspicious mass, calcification, or architectural distortion to suggest malignancy in either breast. IMPRESSION: 1. No mammographic evidence of malignancy. 2. Recommend routine screening mammography in one year. BI-RADS Category 1: Negative Reviewed, dictated and finalized at location B.
== END 2025-01-21 12:54 | disposition home or self-care (01) ==
LOC: CHSIMG 12:54
PROVIDERS: PCP Internal Medicine; Visit Provider Internal Medicine
DX: Z12.31 Encounter for screening mammogram for malignant neoplasm of breast (principal)
CPT/HCPCS: 77063; 77067

== ENCOUNTER 2025-02-01 09:53 | Outpatient (CLI) | payer MEDICARE, BC, SELFPAY ==
[2025-02-01 10:09] LABS: Hematocrit 42.0 % (35.0-42.0); Hemoglobin 13.5 g/dL (11.7-13.8); Mean Corpuscular HGB Conc 32.1 g/dL (32-36); Mean Corpuscular Hemoglobin 30.8 pg (27.0-31.0); Mean Corpuscular Volume 95.9 fL (78.0-102.0); Platelet Count Result 173 K/mm3 (150-420); Red Blood Count 4.38 M/mm3 (4.20-5.40); White Blood Count 3.9 K/mm3 (4.8-10.8)
[2025-02-01 10:26] LABS: Add Urine Microscopic? NO; Appearance Urine Clear (Clear); Glucose Urine UA Negative (Negative); Leukocyte Esterase Ur Negative LEU/UL (Negative); Nitrate Urine Negative (Negative); Specific Grav Ur 1.020 (1.010-1.020)
[2025-02-01 10:43] LABS: Band Neutrophils Percent 0 % (0-6); Basophils Absolute Manual 0.03 K/mm3 (0-0.1); Basophils Percent Manual 1 % (0-1); Eosinophils Absolute Manual 0.11 K/mm3 (0.02-0.50); Eosinophils Percent Manual 3 % (1-6); Lymphocytes Absolute Manual 1.40 K/mm3 (1.1-4.5); Lymphocytes Percent Manual 36 % (18-44); Monocytes Absolute Manual 0.27 K/mm3 (0.1-0.90); Monocytes Percent Manual 7 % (3-9); Neutrophils Absolute Manual 2.06 K/mm3 (1.3-6.7); Neutrophils Percent Manual 53 % (46-73); Total Cells Counted 100
[2025-02-01 11:02] LABS: Alanine Aminotransferase 16 U/L (6-35); Albumin Level 4.5 g/dL (3.5-5.1); Alkaline Phosphatase 50 U/L (38-126); Anion Gap 9 mmol/L (4-12); Aspartate Amino Transferase 27 U/L (14-36); Bilirubin,Total 0.7 mg/dL (0.2-1.3); Blood Urea Nitrogen 19 mg/dL (7-17); Calcium 10.1 mg/dL (8.4-10.2); Carbon Dioxide 28 mmol/L (22-30); Chloride 105 mmol/L (98-107); Cholesterol 187 mg/dL (0-200); Estimated Glomerular Filt Rate > 60; Glucose 90 mg/dL (65-110); HDL Direct 68 mg/dL; Osmolality Calculated 296 mOsm/kg (285-295); Potassium 4.6 mmol/L (3.4-5.0); Sodium 142 mmol/L (137-145); Total Protein 8.7 g/dL (6.3-8.2); Triglycerides 71 mg/dL (<150)
[2025-02-01 11:21] LABS: Free T3 2.99 pg/mL (2.18-3.98)
[2025-02-01 11:22] LABS: Free T4 Free Thyroxine 0.86 ng/dL (0.78-2.19)
[2025-02-01 11:36] LABS: Thyroid Stimulating Hormone 7.810 uIU/mL (0.465-4.680)
== END 2025-02-01 09:54 | disposition home or self-care (01) ==
LOC: CHSLAB 09:56
PROVIDERS: PCP Internal Medicine; Visit Provider Internal Medicine
DX: E03.4 Atrophy of thyroid (acquired) (principal); M81.0 Age-related osteoporosis without current pathological fracture; Z13.220 Encounter for screening for lipoid disorders
CPT/HCPCS: 36415; 80053; 80061; 81003; 84439; 84443; 84481; 85025

== ENCOUNTER 2025-03-04 02:08 | Day surgery (SDC) | payer MEDICARE, BC, SELFPAY ==
[2025-02-27 08:27] VITALS: BMI 21.0
[2025-03-04 07:13] VITALS: BP 106/80; PULSE 80; RESP 18; TEMP 35.9; O2SAT 100; BMI 20.3
[2025-03-04] MEDS: LACTATED RINGERS 1,000 ML 150 ML IV CONT (07:23)
--- NOTE | 2025-03-04 07:51 | WPDANESEPPF ---
Anes - Initial Pre Proc Eval Procedure: Operation Date: 03/04/25 08:30 Proposed Procedures p EGD & Screening Colonoscopy - Alan Roberts MD Date/Time: 03/04/25 07:51 Surgeon: Alan Roberts MD Pre Op Diagnosis: Dysphagia, screening Patient Data Age: 70 Gender: F Height: 1.68 m Weight: 57.2 kg Last Vital Signs Temp 35.9 C L 03/04/25 07:13 Pulse 80 03/04/25 07:13 Resp 18 03/04/25 07:13 BP 106/80 03/04/25 07:13 Pulse Ox 100 03/04/25 07:13 O2 Del Method Room Air 03/04/25 07:13 Allergies Allergy/AdvReac Type Severity Reaction Status Date / Time No Known Allergies Allergy Verified 02/27/25 08:15 Home Medications ?Medication ?Instructions ?Recorded ?Confirmed ?Type albuterol sulfate 90 mcg/actuation 1 inh inhalation Q8H PRN shortness 02/27/25 02/27/25 History aerosol inhaler of breath or wheezing fluticasone propionate 50 1 spray intranasal Q12H PRN nasal 02/27/25 02/27/25 History mcg/actuation nasal congestion spray,suspension levothyroxine 100 mcg tablet 100 mcg PO DAILY 02/27/25 03/04/25 History pantoprazole 40 mg tablet,delayed 40 mg PO Q12H 02/27/25 03/04/25 History release Patient hx anesthesia problems: none Family hx anesthesia problems: none Results Review: All pre-operative results and documents have been reviewed as part of the pre-operative evaluation. [facility] Past Medical History Medical History (Updated 03/04/25 @ 07:51 by Jese Zamorano MD) Hypothyroidism Asthma Social History Social History Smoking status: Never smoker Alcohol intake: current Drinks per week: 4 Substance use: never Substance use type: does not use Living arrangements: with family Spiritual care concerns: No Anes - Eval Final PreProcedure Day of Procedure 03/04/25 07:51 Patient weight: normal Heart: regular rate and rhythm Lungs: clear to auscultation Airway: Mallampati scale class II Neurological: alert and oriented Last oral intake: >/= 8 hours ASA classification: II Emergent: no Anesthetic plan: proceed Anesthesia type and monitoring: general GIVS and standard monitoring Results Review: All pre-operative results and documents have been reviewed as part of the pre-operative evaluation. Informed Consent: The patient's anesthetic plan and its attendant risks and benefits were discussed with the patient/family/POA. Questions were solicited and answers provided to the satisfaction of the patient/family/POA.
--- NOTE | 2025-03-04 08:18 | PM.HPGS ---
History of Present Illness History of Present Illness Consent: Risks, benefits, and alternatives have been discussed and questions answered. Patient agrees to proceed with procedure. Chief complaint: Dysphagia, screening Narrative: Griselda Barron is a 70 year old female here for egd and colonoscopy, she reports occasional difficulty to swallow, also needs colon screening Review of Systems Review of Systems: All systems reviewed & are unremarkable except as noted in HPI and below PMFSH Past Medical History Medical History (Updated 03/04/25 @ 08:19 by Alan Roberts MD) Colon cancer screening Dysphagia Hypothyroidism Asthma Social History Social History Smoking status: Never smoker Alcohol intake: current Drinks per week: 4 Substance use: never Substance use type: does not use Living arrangements: with family Spiritual care concerns: No Meds Home Medications and Allergies Home Medications ?Medication ?Instructions ?Recorded ?Confirmed ?Type albuterol sulfate 90 mcg/actuation 1 inh inhalation Q8H PRN shortness 02/27/25 02/27/25 History aerosol inhaler of breath or wheezing fluticasone propionate 50 1 spray intranasal Q12H PRN nasal 02/27/25 02/27/25 History mcg/actuation nasal congestion spray,suspension levothyroxine 100 mcg tablet 100 mcg PO DAILY 02/27/25 03/04/25 History pantoprazole 40 mg tablet,delayed 40 mg PO Q12H 02/27/25 03/04/25 History release Allergies Allergy/AdvReac Type Severity Reaction Status Date / Time No Known Allergies Allergy Verified 02/27/25 08:15 Vital Signs Vital Signs - 24 hr 03/04/25 07:13 Temperature 96.6 F L Pulse Rate 80 Respiratory Rate 18 Blood Pressure 106/80 Pulse Oximetry 100 Oxygen Delivery Room Air Exam Const: General: comfortable and no acute distress HENMT: Face/Nose/Sinus: Normal nares present Eyes: General: appearance normal, both eyes and all related structures Resp: Auscultation: clear to auscultation bilaterally Cardio: Rate: regular rate Rhythm: regular rhythm GI: Inspection: non-distended GI Palp: Yes Soft to palpation Skin: General skin exam: normal color Extrem: General: normal to inspection Psych: Mental Status: mental status grossly normal Assessment and Plan Assessment and plan (1) Dysphagia: Code(s): R13.10 - Dysphagia, unspecified Status: Acute Assessment and Plan: egd (2) Colon cancer screening: Code(s): Z12.11 - Encounter for screening for malignant neoplasm of colon Status: Acute Assessment and Plan: colonoscopy
--- NOTE | 2025-03-04 08:34 | S_PTH ---
PATIENT: Griselda Barron LOC: [facility]#:[id number] AGE/SX: 70/F ROOM: RE03/04/[address]: Alan Roberts MD : 1955 BED: DIS: 03/04/2025 SPEC #: [id number] RECD: 03/04/25 09:04 STATUS: MARTINA REDDY #: [id number] ZENIA: 03/04/25 08:[address]: Alan Roberts DEPT: [facility] Surgical RECD BY: Staci Olivia ENTERED: 03/04/25 09:05 SP TYPE: Surgical OTHR DR: Wild Vargas MD Tissues: A - Gastric Biopsy B - Esophageal Biopsy C - Colon Polypectomy D - Colon Polypectomy Procedures: Hematoxylin and Eosin Stain Gross and Microscopic Level 4
--- NOTE | 2025-03-04 08:36 | SUR.OPER ---
EGD: Start 826, End 829 Colonoscopy: Start 833, End 848
[2025-03-04 08:52] VITALS: BP 99/60; PULSE 68; RESP 16; O2SAT 99
[2025-03-04 09:02] VITALS: BP 90/50; PULSE 67; RESP 23; O2SAT 99
[2025-03-04 09:12] VITALS: BP 128/76; PULSE 60; RESP 22; O2SAT 96
== END 2025-03-04 09:24 | disposition home or self-care (01) ==
PROVIDERS: PCP Internal Medicine; Referring Provider Internal Medicine; Visit Provider Internal Medicine Gastroenterology
PROC: 0DJ08ZZ Inspection of Upper Intestinal Tract, Via Natural or Artificial Opening Endoscopic (ICD-10-PCS; CPT 45378; principal; 2025-03-04 08:30)
DX: Z12.11 Encounter for screening for malignant neoplasm of colon (principal); D12.2 Benign neoplasm of ascending colon; D12.0 Benign neoplasm of cecum; R13.10 Dysphagia, unspecified; K31.9 Disease of stomach and duodenum, unspecified; K21.00 Gastro-esophageal reflux disease with esophagitis, without bleeding; E03.9 Hypothyroidism, unspecified; J45.909 Unspecified asthma, uncomplicated
CPT/HCPCS: 43239; 45385; 45380; 88305; J2003; J2704; J7120

== ENCOUNTER 2025-04-12 11:57 | Outpatient (CLI) | payer MEDICARE, SELFPAY ==
[2025-04-12 13:35] LABS: Free T3 2.55 pg/mL (2.18-3.98)
[2025-04-12 13:49] LABS: Thyroid Stimulating Hormone 6.380 uIU/mL (0.465-4.680)
== END 2025-04-12 11:58 | disposition home or self-care (01) ==
PROVIDERS: PCP Internal Medicine; Visit Provider Internal Medicine
DX: E03.4 Atrophy of thyroid (acquired) (principal)
CPT/HCPCS: 36415; 84443; 84481